=== PATIENT | female | born 1940 | race Caucasian/White ===

== ENCOUNTER 2018-12-15 21:32 | Inpatient (IN) | payer MEDICARE, OTHER ==
[~2018-12-15] VITALS: Ht 157.5 cm; Wt 63.4 kg
[~2018-12-15 21:32] MED LIST: ACET325T33 PO; ALPR0.254 PO; ASCO500C7 PO; DIOS630T PO; DONE10TA7 PO; ERGO500013 PO; ESCI5TAB PO; GUAI-173 PO; IPRA3AMP29 INHALATION; LIDO30JE13 MM; LIDO5CRE24 TP; LOPE-123 PO; LORA10TA3 PO; MIRA50TA PO; MULT-876 PO; PROT946L PO
[2018-12-15] MEDS ORDERED: CEFEPIME 2GM/50 ML (PMX) 50 ML IVPB STA (21:35)
[2018-12-15] MEDS ORDERED: ALBUTEROL 0.083% (NEB) 2.5 MG/3 ML AMP HHN STA (21:35)
[2018-12-15] MEDS ORDERED: ACETAMINOPHEN 650 MG SUPP PR STA (21:35)
[2018-12-15] MEDS ORDERED: VANCOMYCIN 1 GM (PMX) 250 ML IVPB ONE (22:00)
[2018-12-15] MEDS ORDERED: LEVALBUTEROL (NEB) 1.25 MG/0.5 ML AMP HHN ONE (22:00)
[2018-12-15] MEDS ORDERED: IPRATROPIUM (NEB) 0.5 MG/2.5 ML AMP HHN ONE (22:00)
[2018-12-15 22:27] VITALS: Ht 157.5 cm; Wt 63.4 kg
[2018-12-15] MEDS ORDERED: SODIUM CHLORIDE 0.9% 1L BAG IV* STA (22:31)
[2018-12-15] MEDS ORDERED: ACETAMINOPHEN 325 MG TAB PO PRN (23:00)
[2018-12-15] MEDS ORDERED: ONDANSETRON 4 MG INJ IV PRN (23:00)
[2018-12-16] VITALS (19 sets, daily range): BP systolic 88–196; BP diastolic 33–92; PULSE 81–141; RESP 16–50
[2018-12-16] MEDS ORDERED: IPRATROPIUM (NEB) 0.5 MG/2.5 ML AMP NEB PRN
[2018-12-16] MEDS ORDERED: ONDANSETRON 4 MG INJ IV PRN
[2018-12-16] MEDS ORDERED: NACL 0.9% 3 ML SYG IV SCH
[2018-12-16] MEDS ORDERED: LEVALBUTEROL (NEB) 0.63 MG/3 ML AMP HHN PRN
[2018-12-16] MEDS: SOD CHLORIDE 0.9% 1,000 ML IV SCH ×3 (03:46→17:24)
[2018-12-16] MEDS ORDERED: SOD CHLORIDE 0.9% 250 ML IV ONE (05:30)
[2018-12-16] MEDS ORDERED: VANCOMYCIN IV PER PHARMACY XX SCH (07:30)
[2018-12-16] MEDS: CEFEPIME 1GM/50 ML (PMX) 50 ML IVPB SCH ×2 (08:50→20:53)
[2018-12-16] MEDS: HEPARIN 5,000 UNIT/1 ML VIAL SC SCH ×2 (08:51→20:55)
[2018-12-16] MEDS: ALBUTEROL/IPRATROPIUM (NEB) 3 ML AMP HHN SCH ×4 (09:11→20:04)
[2018-12-16] MEDS ORDERED: DEXTROSE 50% 50 ML SYRINGE ONE (17:07)
[2018-12-16] MEDS ORDERED: DEXTROSE 50% 50 ML SYRINGE IV ONE (17:30)
[2018-12-16] MEDS ORDERED: ACETAMINOPHEN 650 MG SUPP PR ONE (17:30)
[2018-12-16] MEDS ORDERED: SOD CHLORIDE 0.9% 1,000 ML IV ONE ×2 (19:00→20:00)
[2018-12-16] MEDS: DEXTROSE 5%-0.9% NACL 1,000 ML IV SCH (19:43)
[2018-12-16] MEDS: VANCOMYCIN 1 GM 250 ML IVPB SCH (21:44)
[2018-12-17] VITALS (19 sets, daily range): BP systolic 91–114; BP diastolic 43–76; PULSE 65–90; RESP 16–32
[2018-12-17] MEDS: ALBUTEROL/IPRATROPIUM (NEB) 3 ML AMP HHN SCH ×6 (00:44→22:04)
[2018-12-17] MEDS: DEXTROSE 5%-0.9% NACL 1,000 ML IV SCH ×3 (05:09→19:03)
[2018-12-17] MEDS: PANTOPRAZOLE 40 MG INJ IV SCH (05:10)
[2018-12-17] MEDS: POTASSIUM CHLORIDE 100 ML IVPB SCH ×2 (07:52→11:47)
[2018-12-17] MEDS: CEFEPIME 1GM/50 ML (PMX) 50 ML IVPB SCH (08:47)
[2018-12-17] MEDS: HEPARIN 5,000 UNIT/1 ML VIAL SC SCH ×2 (08:49→20:14)
[2018-12-17] MEDS ORDERED: BISACODYL (EC) 5 MG TAB PO ONE (13:00)
[2018-12-17] MEDS ORDERED: SOD CHLORIDE 0.9% 500 ML IV ONE (13:00)
[2018-12-17] MEDS ORDERED: SOD CHLORIDE 0.9% 100 ML ONE (13:59)
[2018-12-17] MEDS ORDERED: IOHEXOL 300MG/ML 150 ML BTL ONE (13:59)
[2018-12-17] MEDS ORDERED: LORAZEPAM 2 MG INJ IV PRN (17:00)
[2018-12-17] MEDS: MEROPENEM 1 GM/50ML(PMX) 50 ML IVPB SCH (20:10)
[2018-12-18] MEDS: VANCOMYCIN 1 GM 250 ML IVPB SCH ×2 (00:26→22:03)
[2018-12-18] MEDS: DEXTROSE 5%-0.9% NACL 1,000 ML IV SCH ×4 (00:46→21:00)
[2018-12-18 02:00] VITALS: BP 126/58; PULSE 108; RESP 20
[2018-12-18] MEDS: ALBUTEROL/IPRATROPIUM (NEB) 3 ML AMP HHN SCH ×6 (02:05→19:55)
[2018-12-18] MEDS: ACETAMINOPHEN 325 MG TAB PO PRN ×2 (02:35→19:05)
[2018-12-18] MEDS: PANTOPRAZOLE 40 MG INJ IV SCH (05:18)
[2018-12-18 07:31] VITALS: BP 100/53; PULSE 82; RESP 20
[2018-12-18] MEDS: MEROPENEM 1 GM/50ML(PMX) 50 ML IVPB SCH ×2 (08:49→21:02)
[2018-12-18] MEDS: POTASSIUM CHLORIDE 100 ML IVPB SCH ×4 (08:49→19:00)
[2018-12-18] MEDS ORDERED: LIDOCAINE 1% (MDV) 20 ML INJ ONE (11:35)
[2018-12-18] MEDS ORDERED: MIDAZOLAM 1 MG/ML 2 ML INJ ONE (12:18)
[2018-12-18] MEDS ORDERED: FENTAnyl 50 MCG/ML VIAL ONE (12:18)
[2018-12-18 13:42] VITALS: BP 120/58; PULSE 95; RESP 22
[2018-12-18] MEDS ORDERED: POTASSIUM CHLORIDE (SR) 20 MEQ TAB PO STA (14:06)
[2018-12-18 20:33] VITALS: BP 126/72; PULSE 139; RESP 24
[2018-12-18 22:09] VITALS: PULSE 102
[2018-12-18] MEDS ORDERED: VANCOMYCIN 500 MG (PMX) 100 ML IVPB SCH (23:30)
[2018-12-19] MEDS: ALBUTEROL/IPRATROPIUM (NEB) 3 ML AMP HHN SCH ×5 (00:06→19:48)
[2018-12-19 01:55] VITALS: BP 109/56; PULSE 96; RESP 24
[2018-12-19] MEDS: ACETAMINOPHEN 325 MG TAB PO PRN (05:07)
[2018-12-19] MEDS: DEXTROSE 5%-0.9% NACL 1,000 ML IV SCH ×4 (06:00→23:27)
[2018-12-19] MEDS: PANTOPRAZOLE 40 MG INJ IV SCH (06:07)
[2018-12-19 07:19] VITALS: BP 112/58; PULSE 93; RESP 20
[2018-12-19] MEDS: MEROPENEM 1 GM/50ML(PMX) 50 ML IVPB SCH ×2 (08:56→20:58)
[2018-12-19] MEDS: HYDROCODONE/APAP (5/325) TAB PO PRN (13:59)
[2018-12-19 14:00] VITALS: BP 122/63; PULSE 90; RESP 26
[2018-12-19] MEDS: morphine 2 MG INJ IV PRN (18:17)
[2018-12-19] MEDS: VANCOMYCIN 750 MG (PMX) 250 ML IVPB SCH (18:17)
[2018-12-19 20:00] VITALS: BP 126/72; PULSE 84; RESP 16
[2018-12-19] MEDS: NYSTATIN SUSP 5 ML CUP PO SCH (20:58)
[2018-12-19] MEDS ORDERED: VANCOMYCIN 1.5 GM/NS 250 ML 250 ML IVPB SCH (21:00)
[2018-12-20] MEDS: ALBUTEROL/IPRATROPIUM (NEB) 3 ML AMP HHN SCH ×6 (01:00→20:17)
[2018-12-20] MEDS: morphine 2 MG INJ IV PRN ×3 (01:28→21:17)
[2018-12-20 02:00] VITALS: BP 116/66; PULSE 87; RESP 16
[2018-12-20] MEDS: VANCOMYCIN 750 MG (PMX) 250 ML IVPB SCH (05:58)
[2018-12-20] MEDS: PANTOPRAZOLE (EC) 40 MG TAB PO SCH (05:58)
[2018-12-20 07:33] VITALS: BP 119/55; PULSE 86; RESP 18
[2018-12-20] MEDS: NYSTATIN SUSP 5 ML CUP PO SCH ×3 (08:52→21:13)
[2018-12-20] MEDS: MEROPENEM 1 GM/50ML(PMX) 50 ML IVPB SCH ×2 (08:52→21:13)
[2018-12-20] MEDS: DEXTROSE 5%-0.9% NACL 1,000 ML IV SCH (15:45)
[2018-12-20 15:47] VITALS: BP 110/56; PULSE 92; RESP 20
[2018-12-20] MEDS ORDERED: POTASSIUM CHLORIDE (SR) 20 MEQ TAB PO STA (16:14)
[2018-12-20 20:00] VITALS: BP 107/55; PULSE 89; RESP 16
[2018-12-21] MEDS: DEXTROSE 5%-0.9% NACL 1,000 ML IV SCH ×3 (01:10→20:40)
[2018-12-21] MEDS: ALBUTEROL/IPRATROPIUM (NEB) 3 ML AMP HHN SCH ×6 (01:21→20:45)
[2018-12-21 02:00] VITALS: BP 136/64; PULSE 95; RESP 16
[2018-12-21] MEDS: PANTOPRAZOLE (EC) 40 MG TAB PO SCH (05:51)
[2018-12-21 07:17] VITALS: BP 129/67; PULSE 87; RESP 20
[2018-12-21] MEDS: MEROPENEM 1 GM/50ML(PMX) 50 ML IVPB SCH ×2 (09:25→20:36)
[2018-12-21] MEDS: NYSTATIN SUSP 5 ML CUP PO SCH ×3 (09:25→20:36)
[2018-12-21] MEDS ORDERED: MAGNESIUM SULFATE 2 GM/50 ML 50 ML IVPB ONE (11:00)
[2018-12-21] MEDS ORDERED: POTASSIUM CHLORIDE 20 MEQ POWDER FOR ORAL SOLN PO ONE (11:00)
[2018-12-21 14:10] VITALS: BP 138/64; PULSE 92; RESP 20
[2018-12-21] MEDS: HYDROCODONE/APAP (5/325) TAB PO PRN (14:48)
[2018-12-21 19:20] VITALS: BP 119/59; PULSE 91; RESP 18
[2018-12-22] MEDS: ALBUTEROL/IPRATROPIUM (NEB) 3 ML AMP HHN SCH ×3 (01:10→08:59)
[2018-12-22 01:30] VITALS: BP 117/59; PULSE 89; RESP 18
[2018-12-22] MEDS: DEXTROSE 5%-0.9% NACL 1,000 ML IV SCH ×2 (03:50→11:34)
[2018-12-22] MEDS: PANTOPRAZOLE (EC) 40 MG TAB PO SCH (05:53)
[2018-12-22 07:37] VITALS: BP 113/54; PULSE 87; RESP 20
[2018-12-22] MEDS: MEROPENEM 1 GM/50ML(PMX) 50 ML IVPB SCH (08:49)
[2018-12-22] MEDS: NYSTATIN SUSP 5 ML CUP PO SCH ×2 (08:49→12:53)
[2018-12-22] MEDS ORDERED: PETROLATUM 5 GM OINT TOP PRN (13:30)
[2018-12-22 15:01] VITALS: BP 131/62; PULSE 92; RESP 20
== END 2018-12-22 18:00 | DRG 871 ==
LOC: E/R 21:32 → PP2 22:36 → ICU 12-16 17:42 → 2NE 12-17 17:55
PROVIDERS: ADMIT Internal Medicine; ATTEND Internal Medicine
PROC: 0F9430Z Drainage of Gallbladder with Drainage Device, Percutaneous Approach (ICD-10-PCS; principal; 2018-12-18)
DX: A41.50 Gram-negative sepsis, unspecified (principal); J18.9 Pneumonia, unspecified organism; G93.41 Metabolic encephalopathy; J90 Pleural effusion, not elsewhere classified; K81.0 Acute cholecystitis; G30.9 Alzheimer's disease, unspecified; F02.80 Dementia in other diseases classified elsewhere, unspecified severity, without behavioral disturbance, psychotic disturbance, mood disturbance, and anxiety; D64.9 Anemia, unspecified; R13.10 Dysphagia, unspecified; F41.9 Anxiety disorder, unspecified; F32.9 Major depressive disorder, single episode, unspecified; M19.90 Unspecified osteoarthritis, unspecified site
CPT/HCPCS: 36415; 71045; 74160; 74176; 77012; 80048; 80053; 80202; 81001; 82962; 83605; 83735; 84100; 84484; 85025; 85610; 85730; 87070; 87081; 87086; 92526; 92610; 93005; 94640; 94664; 96365; 96368; 97110; 97163; 97530; C1729; C9113; J0692; J1644; J2060; J2185; J2250; J2270; J3010; J3370; J3475; J3480; J7030; J7040; J7042; Q9967